=== PATIENT | female | born 1955 | race Caucasian/White ===

== ENCOUNTER 2016-08-13 18:16 | Emergency (ER) | payer MEDICAID, OTHER ==
[~2016-08-13] VITALS: Ht 157.5 cm; Wt 62.2 kg
[2016-08-13] MEDS ORDERED: SODIUM CHLORIDE FLUSH 10ML SYR IVF ONE (18:30)
[2016-08-13] MEDS ORDERED: FAMOTIDINE 20 MG/2 ML IVP ONE (18:30)
[2016-08-13] MEDS ORDERED: ONDANSETRON 2MG/ML, 2ML IVPush ONE ×2 (18:30→21:30)
[2016-08-13] MEDS ORDERED: SODIUM CHLORIDE 0.9% 1,000ML IVBOLUS ONE (18:30)
[2016-08-13] MEDS ORDERED: MORPHINE SULFATE 4 MG/ML, 1ML IVPush PRN ×2 (18:30→21:30)
[2016-08-13] MEDS ORDERED: ONDANSETRON 2MG/ML, 2ML ONE (18:44)
[2016-08-13] MEDS ORDERED: MORPHINE SULFATE 4 MG/ML, 1ML ONE (18:44)
[2016-08-13] MEDS ORDERED: FAMOTIDINE 20 MG/2 ML ONE (18:44)
[2016-08-13 19:30] LABS: BLOOD UREA NITROGEN 12 mg/dL (7-18)
[2016-08-13 19:33] LABS: ASPARTATE AMINO TRANSFERASE 21 U/L (15-37)
[2016-08-13] MEDS ORDERED: OMNIPAQUE 350 MG/ML, 100ML BOTTLE ONE (20:08)
[2016-08-13 21:13] VITALS: BP 123/67
== END 2016-08-13 21:16 | disposition home or self-care (01) ==
LOC: ED 21:07
DX: K57.32 Diverticulitis of large intestine without perforation or abscess without bleeding (principal); R10.31 Right lower quadrant pain; R10.32 Left lower quadrant pain; J45.909 Unspecified asthma, uncomplicated; F17.200 Nicotine dependence, unspecified, uncomplicated
CPT/HCPCS: 36415; 74177; 80053; 81003; 83690; 85025; 96361; 96374; 96375; 99285; J2405; J7030; Q9967; S0028

== ENCOUNTER 2017-02-01 09:53 | Emergency (ER) | payer MEDICAID ==
[~2017-02-01] VITALS: Ht 157.5 cm; Wt 63.5 kg
[2017-02-01] MEDS ORDERED: LIDOCAINE 1%, 20ML ONE (11:09)
[2017-02-01 13:20] VITALS: BP 133/65
== END 2017-02-01 13:22 | disposition home or self-care (01) ==
LOC: ED 12:00
DX: S01.01XA Laceration without foreign body of scalp, initial encounter (principal); J45.909 Unspecified asthma, uncomplicated; F41.1 Generalized anxiety disorder; Z90.89 Acquired absence of other organs; W19.XXXA Unspecified fall, initial encounter; Y93.89 Activity, other specified; Y99.8 Other external cause status; Y92.009 Unspecified place in unspecified non-institutional (private) residence as the place of occurrence of the external cause
CPT/HCPCS: 13120; 13151

== ENCOUNTER 2017-06-06 09:27 | Emergency (ER) | payer MEDICAID ==
[~2017-06-06] VITALS: Ht 157.5 cm; Wt 62.0 kg
[2017-06-06 09:32] VITALS: BP 150/80
[2017-06-06] MEDS ORDERED: KETOROLAC 30 MG/1 ML ONE (09:59)
[2017-06-06] MEDS ORDERED: KETOROLAC 30 MG/1 ML IM ONE (10:00)
== END 2017-06-06 10:48 | disposition home or self-care (01) ==
LOC: ED 10:30
DX: R07.89 Other chest pain (principal); M94.0 Chondrocostal junction syndrome [Tietze]
CPT/HCPCS: 71046; 96372; 99284; J1885

== ENCOUNTER 2017-07-16 15:55 | Emergency (ER) | payer MEDICAID ==
[~2017-07-16] VITALS: Ht 157.5 cm; Wt 60.0 kg
[2017-07-16 16:56] LABS: BASOPHILS # (AUTO) 0.11 x10^3/uL (0-0.1); BASOPHILS % (AUTO) 2 % (0-1); EOSINOPHILS # (AUTO) 0.14 x10^3/uL (0-0.4); EOSINOPHILS % (AUTO) 2 % (1-7); LYMPHOCYTES # (AUTO) 1.51 x10^3/uL (1-3.4); LYMPHOCYTES % (AUTO) 23 % (22-44); MD NO; MEAN CORPUSCULAR HEMOGLOBIN 33.3 pg (27.0-34.8); MEAN PLATELET VOLUME 6.8 fL (7.4-10.4); MONOCYTES # (AUTO) 0.41 x10^3/uL (0.2-0.8); MONOCYTES % (AUTO) 6 % (2-9); NEUTROPHILS # (AUTO) 4.39 x10^3/uL (1.8-6.8); NEUTROPHILS % (AUTO) 67 % (42-75); PLATELET COUNT 331 x10^3/uL (130-400); RED BLOOD COUNT 4.66 x10^6/uL (3.82-5.3); RED CELL DISTRIBUTION WIDTH 15.1 % (9.6-15.2)
[2017-07-16 17:07] LABS: ALANINE AMINOTRANSFERASE 22 U/L (12-78); ALBUMIN 3.6 g/dL (3.4-5.0); ANION GAP 6 mmol/L (5-15); CALCIUM 7.8 mg/dL (8.5-10.1); CHLORIDE 115 mmol/L (98-107); CREATININE 0.59 mg/dL (0.55-1.02)
[2017-07-16 17:09] LABS: ALKALINE PHOSPHATASE 64 U/L (45-117); BILIRUBIN,TOTAL 0.2 mg/dL (0.2-1.0); SALICYLATE LEVEL 22.1 mg/dL (2.8-20.0); TOTAL PROTEIN 6.7 g/dL (6.4-8.2)
[2017-07-16 17:11] LABS: ACETAMINOPHEN < 2 mcg/mL (10-30)
[2017-07-16 18:38] LABS: AMPHETAMINE SCREEN, URINE Negative (Negative); BARBITURATE SCREEN, URINE Negative (Negative); BENZODIAZEPINE SCREEN, URINE Positive (Negative); CANNABINOID SCREEN, URINE Negative (Negative); COCAINE SCREEN, URINE Negative (Negative); METHADONE SCREEN, URINE Negative (Negative); OPIATE SCREEN, URINE Negative (Negative)
[2017-07-16] MEDS ORDERED: ALBU18HF INH (21:39)
[2017-07-16] MEDS ORDERED: FLUT1BLS INH (21:39)
[2017-07-16] MEDS ORDERED: ALPR1TAB2 PO (21:39)
[2017-07-16 21:46] VITALS: BP 110/73
[2017-07-16] MEDS ORDERED: ACETAMINOPHEN 325 MG TABLET PO PRN (22:30)
[2017-07-16] MEDS ORDERED: NICOTINE 21 MG/24 HR PATCH.TD24 TD ONE (22:30)
[2017-07-16] MEDS ORDERED: POLYETHYLENE GLYCOL 17 GM PACKET PO PRN (22:30)
[2017-07-16] MEDS ORDERED: ALBUTEROL SULFATE 2.5 MG/3 ML NPPB PRN (23:45)
[2017-07-17] MEDS ORDERED: ALBUTEROL SULFATE 2.5 MG/3 ML NPPB PRN (00:30)
[2017-07-17] MEDS ORDERED: NICOTINE 21 MG/24 HR PATCH.TD24 ONE (03:59)
[2017-07-17] MEDS ORDERED: ALBUTEROL SULFATE 2.5 MG/3 ML ONE (04:09)
[2017-07-17] MEDS ORDERED: FLUTICASONE/VILANTEROL 200-25MCG/INH INH SCH (09:00)
[2017-07-17] MEDS ORDERED: ASPIRIN 325 MG TABLET ONE (11:45)
[2017-07-17] MEDS ORDERED: ASPIRIN 325 MG TABLET PO ONE (12:00)
== END 2017-07-17 14:22 | disposition home or self-care (01) ==
LOC: ED 21:07 → UNDOADMOB 22:07 → SUATTDRO 22:07 → EDIP 22:07
PROVIDERS: ATTEND Hospitalist
DX: R45.851 Suicidal ideations (principal); F10.20 Alcohol dependence, uncomplicated; J45.909 Unspecified asthma, uncomplicated; F17.200 Nicotine dependence, unspecified, uncomplicated
CPT/HCPCS: 36415; 80053; 80307; 80329; 85025; 93005; 99285; G0480